=== PATIENT | female | born 1980 | race Caucasian/White ===

== ENCOUNTER → 2017-06-01 | Outpatient (CLI) | payer BC ==
[~2017-06-01] MED LIST: AMITRIPTYLINE H25 MG PO; INDOMETHACIN50 MG PO; MUSCLE RELAXANT PO; TIZANIDINE HCL4 M1 PO; ZYRTEC10 M3 PO
--- NOTE | 2017-06-01 15:11 | Diagnostic Imaging Report ---
PROCEDURE:LIMITED ABDOMINAL ULTRASOUND COMPARISON:None. INDICATIONS:RUQ Pain FINDINGS: Liver: 15.2 cm. Normal hepatic parenchymal echogenicity. No focal mass. Main portal vein: 1.1 cm. Hepatopedal flow. Gallbladder: No echogenic calculi, gallbladder wall thickening, or pericholecystic fluid. Echogenic debris is visualized in the gallbladder lumen. Common Bile Duct: 4.0 mm. No echogenic filling defect. Sonographic Kam's sign: Negative. Right kidney: 11.5 cm. No solid or cystic mass, echogenic calculi, or hydronephrosis. Normal parenchymal echogenicity. Pancreas: The visualized portions of the pancreas are normal. Inferior vena cava: Normal. Aorta: Normal. Ascites: None. CONCLUSION: 1. No acute sonographic abnormality. 2. Gallbladder sludge. No cholelithiasis. Dictated by: Gennaro Auguste M.D. on 06/01/2017 at 15:10 Electronically approved by: Gennaro Auguste M.D. on 06/01/2017 at 15:10
== END ==
LOC: US 14:03
PROVIDERS: ATTEND Family Medicine
DX: R10.11 Right upper quadrant pain (principal); D72.829 Elevated white blood cell count, unspecified
CPT/HCPCS: 76705

== ENCOUNTER → 2017-06-02 | Outpatient (CLI) | payer BC ==
--- NOTE | 2017-06-02 18:17 | Diagnostic Imaging Report ---
PROCEDURE: CT ABDOMEN AND PELVIS WITHOUT CONTRAST TECHNIQUE: The abdomen and pelvis were scanned utilizing a multidetector helical scanner from the diaphragm to the lesser trochanter after the oral administration of water. No IV contrast was administered because of per physician request. Coronal and sagittal multiplanar reformations were obtained. COMPARISON: Right upper quadrant ultrasound 06/01/2017. CT chest 12/03/2015. INDICATIONS: pancreatitis, ruq pain for 2 days FINDINGS: ABSENCE OF INTRAVENOUS CONTRAST DECREASES SENSITIVITY FOR DETECTION OF FOCAL LESIONS AND VASCULAR PATHOLOGY. LOWER THORAX: Normal. HEPATOBILIARY: No focal hepatic lesions. No biliary ductal dilatation. SPLEEN: No splenomegaly. PANCREAS: No focal masses or ductal dilatation. ADRENALS: No adrenal nodules. KIDNEYS/URETERS: No hydronephrosis or solid mass lesions. 0.2 cm stone in the lower pole the right kidney. 0.3 cm stone in the lower pole of the left kidney. 1 mm stone in the upper pole of the left kidney. PELVIC ORGANS/BLADDER: Unremarkable. Tampon is in place within the vagina. PERITONEUM / RETROPERITONEUM: No free air or fluid. LYMPH NODES: No lymphadenopathy. VESSELS: Unremarkable. GI TRACT: No distention or wall thickening. Appendix is not clearly identified. There is however no signs of inflammatory changes. BONES AND SOFT TISSUES: Unremarkable. IMPRESSION: 1. Tiny single right and 2 left nonobstructing renal stones. 2. Otherwise unremarkable CT. Dictated by: Nakul Hansen M.D. on 06/02/2017 at 18:16 Electronically approved by: Nakul Hansen M.D. on 06/02/2017 at 18:16
== END ==
LOC: CT 16:55
PROVIDERS: ATTEND Family Medicine
DX: R10.11 Right upper quadrant pain (principal); D72.829 Elevated white blood cell count, unspecified
CPT/HCPCS: 74176